=== PATIENT | male | born 1965 | race Caucasian/White ===

== ENCOUNTER → 2017-10-02 | Outpatient (CLI) | payer MEDICARE ==
--- NOTE | 2017-10-03 09:45 | RADIOLOGY REPORT (SQ) ---
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 TECHNIQUE: Sagittal and Axial imaging includes T1, T2, STIR and gradient echo sequences. LIMITATIONS: Motion. FINDINGS: ALIGNMENT: Straightening of the lordotic curve. VERTEBRAE: Intact. BONE MARROW: Normal. No marrow replacement or reactive changes. DISCS: Desiccation multiple levels. HARDWARE: None in the spine. CORD AND BASE OF BRAIN: Mild increased signal in the cord at C6-7. SOFT TISSUES: No soft tissue masses. C1-C2: No significant spinal stenosis. C2-C3: Moderate right neural foraminal narrowing due to disc osteophyte complex. C3-C4: Mild spinal stenosis due to disc osteophyte complex. Mild neural foraminal narrowing bilatera lly. C4-C5: Mild -moderate spinal stenosis. Severe neural foraminal narrowing bilaterally. C5-C6: Mild -moderate spinal stenosis. Severe right neural foraminal narrowing. Disc contacts the e xiting right C6 nerve root in the neural foramen. C6-C7: Moderate spinal stenosis. Moderate right and severe left neural foraminal narrowing. Disc co ntacts the exiting left C7 nerve root in the neural foramen C7-T1: No significant spinal stenosis. Severe neural foraminal narrowing bilaterally. UPPER THORACIC: Incompletely imaged. No significant spinal stenosis or exit foraminal stenosis. OTHER: No other significant finding. IMPRESSION: Spinal stenosis at multiple levels, most severe at C6-7. Neural foraminal stenosis. TECHNICAL DOCUMENTATION: JOB ID: [id number] [employer]- All Rights Reserved
== END ==
LOC: RAD 17:12
PROVIDERS: ATTEND Family Medicine
DX: M50.00 Cervical disc disorder with myelopathy, unspecified cervical region (principal); M48.02 Spinal stenosis, cervical region
CPT/HCPCS: 72141